=== PATIENT | male | born 1945 | race Caucasian/White ===

== ENCOUNTER 2018-06-16 08:12 | Inpatient (IN) | payer MEDICARE, OTHER ==
[~2018-06-16] VITALS: Ht 165.1 cm; Wt 77.0 kg
--- NOTE | 2018-06-16 08:12 | NUR ---
AAOX3, [id number] FROM [facility]: LEFT SIDED BODY WEAKNESS. LKW was 0730 while eating his breakfast. left facial drooping and slurred speech noted. RR is even and unlabored with NAD noted. Dr Heller at for eval. Placed on the monitor. Started IVHL LAC 18g, blood drawn sent to the lab.
--- NOTE | 2018-06-16 08:12 | NUR ---
CALLED CODE STROKE.
--- NOTE | 2018-06-16 08:14 | NUR ---
AT . IV ACCESS STARTED. BLOOD DRAWN FOR LABS.
--- NOTE | 2018-06-16 08:17 | NUR ---
PT TAKEN TO CT.
[2018-06-16] MEDS ORDERED: CT SWABBABLE VALVE TRANS SET 1 EA INFUS.SET MC ONE ×2 (08:18→10:13)
[2018-06-16] MEDS ORDERED: IV NS 0.9% 250 ML IV ONE ×2 (08:18→10:13)
[2018-06-16] MEDS ORDERED: IOHEXOL-350 100 ML VIAL IV ONE ×2 (08:18→10:12)
--- NOTE | 2018-06-16 08:20 | NUR ---
CALLED TELESTROKE HOTLINE TO PRESENT CASE SPOKE WITH JOSE MANUEL EXPECTING A CALL BACK FROM DR OLIVARES
[2018-06-16 08:23] LABS: BASOPHILS # (AUTO) 0.1 /CMM (0.0-0.2); BASOPHILS % (AUTO) 0.7 % (0.0-2.0); EOSINOPHILS % (AUTO) 1.3 % (0.0-6.0); HEMATOCRIT 44 % (39-51); HEMOGLOBIN 14.4 g/dL (13.5-17.5); LYMPHOCYTES % (AUTO) 24.6 % (20.0-44.0); MEAN CORPUSCULAR HEMOGLOBIN 30 PG (26.0-33.0); MEAN CORPUSCULAR HGB CONC 33 g/dl (31.0-36.0); MEAN CORPUSCULAR VOLUME 89 fL (80-96); MONOCYTES # (AUTO) 0.6 /CMM (0.1-1.30); MONOCYTES % (AUTO) 7.2 % (2.0-12.0); NEUTROPHILS # (AUTO) 5.2 /CMM (1.8-8.9); NEUTROPHILS % (AUTO) 66.2 % (43.0-81.0); PLATELET COUNT (AUTO) 339 /CMM (150-450); RDW COEFFICIENT OF VARIATION 14.1 (11.5-15.0); WHITE BLOOD COUNT (AUTO) 7.9 K/uL (4.3-11.0)
--- NOTE | 2018-06-16 08:25 | NUR ---
RECEIVED CALL BACK FROM TELE STROKE HOTLINE TRANSFERRED TO DR. NATION.
[2018-06-16] MEDS ORDERED: MORPHINE SULFATE INJ 2 MG/ML DISP.SYRIN IM ONE (08:30)
[2018-06-16] MEDS ORDERED: KETOROLAC TROMETHAMINE INJ 30 MG/ML VIAL IM ONE (08:30)
[2018-06-16 08:33] LABS: CALCIUM, SERUM 8.8 mg/dL (8.5-10.1); CARBON DIOXIDE 22 mmol/L (21-32); CHLORIDE 103 mmol/L (98-107); CREATININE 1.2 mg/dL (0.6-1.3); GLUCOSE 191 mg/dL (74-106); POTASSIUM 4.2 mmol/L (3.5-5.1); SODIUM SERUM 136 mmol/L (136-145); UREA NITROGEN, BLOOD 17 mg/dL (7-18)
[2018-06-16] MEDS ORDERED: MORPHINE SULFATE INJ 4 MG/ML DISP.SYRIN ONE (08:33)
[2018-06-16] MEDS ORDERED: KETOROLAC TROMETHAMINE INJ 60 MG/2 ML VIAL IM ONE (08:33)
[2018-06-16 08:39] LABS: INR 0.99 (0.87-1.13)
[2018-06-16 08:41] LABS: TROPONIN I < 0.017 ng/mL (0.00-0.056)
[2018-06-16 08:46] LABS: CHOLESTEROL 117 mg/dL (<200); HDL CHOLESTEROL 32 mg/dL (40-60); LDL 74 mg/dL (0-99); TRIGLYCERIDES 134 mg/dL (30-150)
[2018-06-16] MEDS ORDERED: ASPIRIN 81 MG TAB.CHEW ONE (08:58)
[2018-06-16] MEDS ORDERED: ASPIRIN 81 MG TAB.CHEW PO ONE (09:00)
--- NOTE | 2018-06-16 09:08 | NUR ---
CALLED [employer] CADET DECK WAS PAGED.
--- NOTE | 2018-06-16 09:40 | NUR ---
ASSIGNED TO #: [id number], DX: TIA, ACCEPTING: NIKKO JASON
--- NOTE | 2018-06-16 10:17 | NUR ---
Report given to KOBE bingham for SHELLIE Tele [id number]
[2018-06-16 11:22] LABS: THYROID STIMULATING HORMONE 4.093 uIU/mL (0.358-3.74)
[2018-06-16 12:00] VITALS: BP 145/81
[2018-06-16] MEDS ORDERED: CLOPIDOGREL BISULFATE 75 MG TABLET PO ONE ×2 (13:30→16:30)
[2018-06-16 16:00] VITALS: BP 142/83
--- NOTE | 2018-06-16 16:00 | NUR ---
RN NOTE: PATIENT ADMITTED FROM ER WITH DIAGNOSE OF TIA, RECEIVED ALERT AWAKE ORIENTED X 2-3 WITH PERIODS OF FORGETFULNESS, CONFUSION. NOTED LEFT SIDE WEAKNESS. MINOR ASYMMETRY OF FACE. ON 2LPM O2 VIA NC. SPEECH SLURRED, ABLE TO UNDERSTAND WITHOUT DIFFICULTY. SAFETY MEASURES OBSERVED. BEDSIDE SWALLOW EVALUATION DONE, PASS SCREEN. NO COUGH NOTED. ABLE TO SWALLOW EASILY. FALL PRECAUTION OBSERVED. CALL LIGHT WITHIN REACH. STROKE EDUCATION INITIATE. DISCUSS STROKE SIGN & SYMPTOMS. VERBALIZE YES I UNDERSTAND. BUT UNABLE TO RETURN DEMONSTRATION. WILL CONTINUE TO PROVIDE EDUCATION.
[2018-06-16 16:11] LABS: BILIRUBIN,DIRECT 0.1 mg/dL (0.0-0.2); BILIRUBIN,TOTAL 0.3 mg/dL (0.2-1.0); TOTAL PROTEIN, SERUM 8.3 g/dL (6.4-8.2)
--- NOTE | 2018-06-16 18:50 | NUR ---
RN NOTE: SEEN BY OT, PT AT BEDSIDE. DVT PUMP ON. ADMINISTER PLAVIX PO, AFTER BEDSIDE SCREENING DONE. ST EVAL PENDING, CONTINUE WITH NPO STATUS. INITIATE STROKE EDUCATION. FALL PREVENTION. REORIENTATION PROVIDED. INSTRUCT TO USE CALL LIGHT FOR IMMEDIATE ASSISTANCE. UNABLE TO COLLECT URINE DUE TO 1ST TIME SPILL ACCIDENTLY ON BED BY PATIENT. 2ND TIME USED RESTROOM WITH PT. WILL CONTINUE TO MONITOR.
[2018-06-16 20:00] VITALS: BP 149/77
[2018-06-16 20:35] LABS: APPEARANCE,URINE SL CLOUDY (CLEAR); BILIRUBIN,URINE NEGATIVE (NEGATIVE); BLOOD, URINE NEGATIVE Ery/uL (NEGATIVE); COLOR,URINE YELLOW (YELLOW); KETONES,URINE NEGATIVE (NEGATIVE); LEUKOCYTE ESTERASE ,URINE NEGATIVE (NEGATIVE); NITRITE, URINE NEGATIVE (NEGATIVE); PH,URINE 6.5 (5.0-8.0); PROTEIN,URINE NEGATIVE (NEGATIVE); UGLUCOSE NEGATIVE (NEGATIVE); UROBILINOGEN,URINE 0.2 EU/dL (0.2)
[2018-06-16] MEDS: ATORVASTATIN 10 MG TABLET PO SCH (23:00)
[2018-06-17] VITALS: BP 143/67
[2018-06-17 04:00] VITALS: BP 138/70
--- NOTE | 2018-06-17 07:10 | NUR ---
TELE/RN INITIAL NOTES RECEIVED PT IN BED, A/O X3; SR HR 70S ON TELEMONITOR. TOLERATING ROOM AIR WELL, NO SOB NOTED. DENIES ANY PAIN. DVT PUMP ON.. HOB ELEVATED. SAFETY MEASURES IN PLACED. CALL LIGHT WITHIN REACH. WILL CONT TO MONITOR
[2018-06-17 07:38] LABS: INR 1.03 (0.87-1.13)
[2018-06-17 08:00] VITALS: BP 115/94
[2018-06-17] MEDS ORDERED: OMEG1CAP PO (08:07)
[2018-06-17] MEDS ORDERED: DIVA250T4 PO (08:07)
[2018-06-17] MEDS ORDERED: POLY15DR40 EACHEYE (08:07)
[2018-06-17] MEDS ORDERED: MAG30ORA PO (08:07)
[2018-06-17] MEDS ORDERED: ACET-868 PO (08:07)
[2018-06-17] MEDS ORDERED: AMLO5TAB2 PO (08:07)
--- NOTE | 2018-06-17 08:30 | NUR ---
RN NOTES PO PLAVIX GIVEN, TOLERATED WELL. SPEECH THERAPIST AT BEDSIDE. PER OK TO START PUREED DIET FOR BREAKFAST
[2018-06-17] MEDS: CLOPIDOGREL BISULFATE 75 MG TABLET PO SCH (08:35)
[2018-06-17 08:48] LABS: BASOPHILS # (AUTO) 0.1 /CMM (0.0-0.2); BASOPHILS % (AUTO) 1.1 % (0.0-2.0); EOSINOPHILS % (AUTO) 1.8 % (0.0-6.0); HEMATOCRIT 43 % (39-51); HEMOGLOBIN 14.5 g/dL (13.5-17.5); LYMPHOCYTES # (AUTO) 2.3 /CMM (0.8-4.8); LYMPHOCYTES % (AUTO) 33.1 % (20.0-44.0); MEAN CORPUSCULAR HEMOGLOBIN 30 PG (26.0-33.0); MEAN CORPUSCULAR HGB CONC 34 g/dl (31.0-36.0); MEAN CORPUSCULAR VOLUME 90 fL (80-96); MONOCYTES # (AUTO) 0.6 /CMM (0.1-1.30); MONOCYTES % (AUTO) 8.3 % (2.0-12.0); NEUTROPHILS # (AUTO) 3.8 /CMM (1.8-8.9); NEUTROPHILS % (AUTO) 55.7 % (43.0-81.0); PLATELET COUNT (AUTO) 319 /CMM (150-450); RDW COEFFICIENT OF VARIATION 14.2 (11.5-15.0); RED BLOOD CELL COUNT(AUTO) 4.83 MIL/uL (4.5-6.0); WHITE BLOOD COUNT (AUTO) 6.9 K/uL (4.3-11.0)
--- NOTE | 2018-06-17 08:58 | NUR ---
RN NOTES SEEN AND EXAMINED BY DR HUA
[2018-06-17 09:05] LABS: CALCIUM, SERUM 8.6 mg/dL (8.5-10.1); CARBON DIOXIDE 24 mmol/L (21-32); CHLORIDE 106 mmol/L (98-107); CREATININE 1.1 mg/dL (0.6-1.3); GLUCOSE 125 mg/dL (74-106); POTASSIUM 4.6 mmol/L (3.5-5.1); SODIUM SERUM 140 mmol/L (136-145); UREA NITROGEN, BLOOD 14 mg/dL (7-18)
[2018-06-17 16:00] VITALS: BP 114/72
--- NOTE | 2018-06-17 18:56 | NUR ---
MS/RN CLOSING NOTES PT IN STABLE CONDITION. NO ACUTE DISTRESS NOTED THROUGHOUT SHIFT. SAFETY MEASURES OBSERVED AT ALL TIMES. ALL NEEDS ANTICIPATED. ENDORSED TO PM SHIFT NURSE FOR SHELLIE
[2018-06-17 20:00] VITALS: BP 128/69
--- NOTE | 2018-06-17 20:00 | NUR ---
RN INITIAL NOTES RECEIVED PT IN BED, A/O X3. TOLERATING ROOM AIR WELL, NO SOB NOTED. DENIES ANY PAIN. DVT PUMP ON.. HOB ELEVATED. SAFETY MEASURES IN PLACED. CALL LIGHT WITHIN REACH. WILL CONT TO MONITOR
[2018-06-17] MEDS: ATORVASTATIN 10 MG TABLET PO SCH (22:02)
[2018-06-18] VITALS: BP 128/69
[2018-06-18 04:00] VITALS: BP 139/79
--- NOTE | 2018-06-18 06:13 | NUR ---
RN CLOSING NOTES PT REMAINED STABLE OVER NIGHT. NO ACUTE DISTRESS NOTED THROUGHOUT SHIFT. SAFETY MEASURES OBSERVED AT ALL TIMES. ALL NEEDS ANTICIPATED AND MET. ENDORSED TO AM SHIFT NURSE FOR SHELLIE
[2018-06-18 08:00] VITALS: BP 130/76
--- NOTE | 2018-06-18 08:00 | NUR ---
DAWIT RN NOTES RECEIVED PT IN BED, A/O 2-3 WITH EPISODES OF CONFUSION, ON ROOM AIR SPO2 97%, NO SOB NOTED. DVT PUMP ON. SAFETY MEASURES IN PLACED. BEDSIDE COMMODE IN PLACE, CALL LIGHT WITHIN REACH.NO IV LINE NOTED AND PATIENT REFUSED TO BE STARTED NEW IV LINE. WILL CONT TO MONITOR PATIENT. Addendum: 06/18/18 at 1152 by AURELIO MARTÍNEZ RN PATIENT IS REFUSING NEW IV LINE START. NOTIFIED.
[2018-06-18] MEDS: CLOPIDOGREL BISULFATE 75 MG TABLET PO SCH (09:34)
[2018-06-18] MEDS ORDERED: ACETAMINOPHEN 325 MG TABLET PO PRN (14:00)
[2018-06-18 16:00] VITALS: BP 144/79
[2018-06-18] MEDS: POLYVINYL ALCOHOL 15 ML BOTTLE EACHEYE SCH (17:55)
[2018-06-18 20:00] VITALS: BP 123/58
--- NOTE | 2018-06-18 20:00 | NUR ---
RN INITIAL NOTES RECEIVED PT IN BED, A/O X3. TOLERATING ROOM AIR WELL, NO SOB NOTED. DENIES ANY PAIN. SAFETY MEASURES IN PLACED. CALL LIGHT WITHIN REACH. WILL CONT TO MONITOR
[2018-06-18] MEDS: ATORVASTATIN 10 MG TABLET PO SCH (21:40)
[2018-06-18] MEDS: DIVALPROEX SODIUM 250 MG TABLET.DR PO SCH (21:40)
[2018-06-18 22:00] VITALS: BP 123/58
[2018-06-19 04:00] VITALS: BP 123/58
[2018-06-19 08:00] VITALS: BP_SYST 126; BP_DIAS 72; BP_DIAS 75
[2018-06-19] MEDS ORDERED: Medication Not On Formulary EA (Omega-3 Fatty Acids/Fish Oil (Fish Oil 1,000 Mg Capsule) PO SCH (09:00)
[2018-06-19] MEDS: CLOPIDOGREL BISULFATE 75 MG TABLET PO SCH (09:22)
[2018-06-19] MEDS: POLYVINYL ALCOHOL 15 ML BOTTLE EACHEYE SCH ×2 (09:22→12:59)
[2018-06-19] MEDS: DIVALPROEX SODIUM 250 MG TABLET.DR PO SCH (09:22)
[2018-06-19] MEDS ORDERED: ATOR10TA PO (12:31)
[2018-06-19] MEDS ORDERED: ASPI-1169 PO (12:31)
[2018-06-19] MEDS ORDERED: CLOP75TA15 PO (12:31)
--- NOTE | 2018-06-19 15:44 | NUR ---
Pt discharged at 1530 today as ordered via ambulance to [facility]. Report given to KOBE Gloria. Pt incontinence care done. All belongings sent with pt.
== END 2018-06-19 15:52 | DRG 65 ==
LOC: ER 08:13 → TELE-TD 09:45 → TELE1 11:17 → MEDSG1 06-17 10:16
PROVIDERS: ADMIT Nurse Practitioner Acute Care; ATTEND Nurse Practitioner Acute Care
DX: I63.9 Cerebral infarction, unspecified (principal); F03.91 Unspecified dementia, unspecified severity, with behavioral disturbance; R73.9 Hyperglycemia, unspecified; I10 Essential (primary) hypertension; Z86.73 Personal history of transient ischemic attack (TIA), and cerebral infarction without residual deficits; Z79.82 Long term (current) use of aspirin; Z88.0 Allergy status to penicillin; I66.01 Occlusion and stenosis of right middle cerebral artery; K80.20 Calculus of gallbladder without cholecystitis without obstruction; K76.0 Fatty (change of) liver, not elsewhere classified; Z79.02 Long term (current) use of antithrombotics/antiplatelets
CPT/HCPCS: 36415; 70450-TC; 70496-TC; 70498-TC; 70551-TC; 71045-TC; 80048-TC; 80061-TC; 80076-TC; 80305; 81000-TC; 82962-TC; 83880; 84443-TC; 84484-TC; 85025-TC; 85652-TC; 85730-TC; 87081-TC; 92521; 92611-TC; 93307-TC; 93970-TC; 95819-TC; 97110-TC; 97112-TC; 97116-TC; A4606; J1885; J2270; J7050; Q9967

== ENCOUNTER 2021-01-16 20:20 | Emergency (ER) | payer MEDICARE, OTHER ==
[~2021-01-16] VITALS: Ht 165.1 cm; Wt 77.1 kg
[~2021-01-16 20:20] MED LIST: ACET-868 PO; AMLO-212 PO; ASPI-1169 PO; ATOR10TA PO; CLOP75TA15 PO; DIVA250T4 PO; MAG30ORA PO; OMEG1CAP PO; POLY15DR40 EACHEYE
--- NOTE | 2021-01-16 20:25 | NUR ---
PT BIBPA C/O A FALL AND TACHYCARDIA. PT AAOX4 BRATHING EVENLY AND UNLABORED. PT ATTACHED TO AIRFIELD ENGINEER OFFICER AND POX. UPON ASSESSMENT, PT HR 97 SKIN IS WARM AND DRY, BUT NOTED A SKIN TEAR ON HIS LEFT HAND. PT STATES IT IS FROM THE FALL. PT DENIES KO. GIVEN BLANKET AND CALL LIGHT WITHIN REACH
--- NOTE | 2021-01-16 22:07 | NUR ---
[facility] called for transport ETA [id number]
--- NOTE | 2021-01-16 22:50 | NUR ---
called [facility] and report given to Lynnette
--- NOTE | 2021-01-16 22:54 | NUR ---
GAVE REPORT TO EMS. Patient discharged to home in stable condition. Written and verbal after care instructions given. Patient verbalizes understanding of instruction. Pt ambulatory with a steady gait.
[2021-01-16 22:55] VITALS: BP 132/53
== END 2021-01-16 22:54 ==
LOC: ER 20:20
DX: S00.83XA Contusion of other part of head, initial encounter (principal); I10 Essential (primary) hypertension; E78.5 Hyperlipidemia, unspecified; E11.9 Type 2 diabetes mellitus without complications; F41.9 Anxiety disorder, unspecified; M19.90 Unspecified osteoarthritis, unspecified site; F03.90 Unspecified dementia, unspecified severity, without behavioral disturbance, psychotic disturbance, mood disturbance, and anxiety; Z86.73 Personal history of transient ischemic attack (TIA), and cerebral infarction without residual deficits; Z88.0 Allergy status to penicillin; Z79.82 Long term (current) use of aspirin; Z79.899 Other long term (current) drug therapy; W18.09XA Striking against other object with subsequent fall, initial encounter; Y93.89 Activity, other specified; Y92.89 Other specified places as the place of occurrence of the external cause; Y99.8 Other external cause status
CPT/HCPCS: 70450-TC; 72125-TC

== ENCOUNTER 2021-01-28 07:47 | Inpatient (IN) | payer MEDICARE, OTHER ==
[2021-01-28] VITALS (43 sets, daily range): BP systolic 89–163; BP diastolic 50–93
[~2021-01-28] VITALS: Ht 167.6 cm; Wt 73.9 kg
--- NOTE | 2021-01-28 07:55 | NUR ---
BLOOD SPECIMEN COLLECTED AND HANDED TO THE LAB.
--- NOTE | 2021-01-28 07:56 | NUR ---
THE PATIENT IS BIBRA [address] [facility] C/O NOSE BLEEDING STARTED 20 MINS WORK ENVIRONMENT SAFETY INSPECTOR. THE PATIENT IS ALERT AND ORIENTED X2. NO NOSEBLEED AT THIS TIME. THE PATIENT DENIES PAIN. IN ROOM AIR AND DENIES SOB. RESPIRATION REGULAR AND UNLABORED. PROVIDED WITH A WARM BLANKET FOR COMFORT. WILL CONTINUE TO MONITOR.
[2021-01-28 08:20] LABS: BASOPHILS % (AUTO) 0.2 % (0.0-2.0); HEMATOCRIT 28 % (39-51); HEMOGLOBIN 9.5 g/dL (13.5-17.5); LYMPHOCYTES % (AUTO) 4.4 % (20.0-44.0); MEAN CORPUSCULAR HGB CONC 34 g/dl (31.0-36.0); MEAN CORPUSCULAR VOLUME 87 fL (80-96); MONOCYTES # (AUTO) 2.3 /CMM (0.1-1.30); MONOCYTES % (AUTO) 10.5 % (2.0-12.0); NEUTROPHILS # (AUTO) 18.7 /CMM (1.8-8.9); NEUTROPHILS % (AUTO) 84.9 % (43.0-81.0); PLATELET COUNT (AUTO) 216 /CMM (150-450); RED BLOOD CELL COUNT(AUTO) 3.25 MIL/uL (4.5-6.0)
[2021-01-28 08:21] LABS: CALCIUM, SERUM 7.7 mg/dL (8.5-10.1); CARBON DIOXIDE 22 mmol/L (21-32); CHLORIDE 104 mmol/L (98-107); CREATININE 3.3 mg/dL (0.6-1.3); GLUCOSE 105 mg/dL (74-106); POTASSIUM 5.5 mmol/L (3.5-5.1); SODIUM SERUM 136 mmol/L (136-145); UREA NITROGEN, BLOOD 68 mg/dL (7-18)
[2021-01-28 08:34] LABS: ALANINE AMINOTRANSFERASE 18 U/L (12-78); ALBUMIN 1.9 g/dL (3.4-5.0); ALKALINE PHOSPHATASE 52 U/L (46-116); ASPARTATE AMINOTRANSFERASE 20 U/L (15-37); B-TYPE NATRIURETIC PEPTIDE 28453 PG/ML (0-125); BILIRUBIN,DIRECT 0.2 mg/dL (0.0-0.2); BILIRUBIN,TOTAL 0.5 mg/dL (0.2-1.0); TOTAL PROTEIN, SERUM 5.8 g/dL (6.4-8.2)
--- NOTE | 2021-01-28 08:40 | NUR ---
Covid swabs done and took them to the lab.
--- NOTE | 2021-01-28 08:45 | NUR ---
MOVE SHEET SUBMITTED AND CALLED FOR BED.
--- NOTE | 2021-01-28 08:57 | NUR ---
[facility] CALLED WIRE WRAPPING MACHINE OPERATOR PAGED.
[2021-01-28] MEDS ORDERED: AZITHROMYCIN 500 MG in IV D5W 250 ML IV ONE (09:00)
[2021-01-28] MEDS ORDERED: CEFTRIAXONE 1GM BAG (ER ONLY) 1 GM/50 ML PIGGYBACK IV ONE (09:00)
[2021-01-28] MEDS ORDERED: FUROSEMIDE 40 MG/4 ML VIAL IV ONE (09:00)
[2021-01-28] MEDS ORDERED: QUERCETIN PO (09:02)
[2021-01-28] MEDS ORDERED: MAGN400O6 PO (09:02)
[2021-01-28] MEDS ORDERED: NA P133E RC (09:02)
[2021-01-28] MEDS ORDERED: CYCL30DR EACHEYE (09:02)
[2021-01-28] MEDS ORDERED: DOCU-141 PO (09:02)
[2021-01-28] MEDS ORDERED: CLOP75TA15 PO (09:02)
[2021-01-28] MEDS ORDERED: CEFTRIAXONE 1GM BAG (ER ONLY) 50 ML IV ONE (09:11)
[2021-01-28] MEDS ORDERED: FUROSEMIDE 40 MG/4 ML VIAL ONE (09:11)
--- NOTE | 2021-01-28 09:37 | NUR ---
RESULT RECEIVED FROM LAB: RAPID COVID NEGATIVE
--- NOTE | 2021-01-28 09:59 | NUR ---
RAPID INFLUENZA SWAB DONE AND TAKEN IT TO THE LAB.
[2021-01-28] MEDS ORDERED: MORPHINE SULFATE INJ 2 MG/ML DISP.SYRIN IV PRN (11:00)
[2021-01-28] MEDS ORDERED: TEMAZEPAM 15 MG CAPSULE PO PRN (11:00)
[2021-01-28] MEDS ORDERED: ONDANSETRON HCL/PF 4 MG/2 ML VIAL IVP PRN (11:00)
[2021-01-28] MEDS ORDERED: ACETAMINOPHEN 325 MG TABLET PO PRN (11:00)
[2021-01-28] MEDS ORDERED: MAG HYDROX/AL HYDROX/SIMETH 30 ML UDC PO PRN (11:00)
[2021-01-28] MEDS ORDERED: Z GUARD REMEDY 2 OZ OINT TP PRN (11:00)
[2021-01-28] MEDS ORDERED: HYDROCODONE/APAP 5/325MG TABLET PO PRN (11:00)
[2021-01-28] MEDS ORDERED: MAGNESIUM HYDROXIDE 30 ML UDC PO PRN (11:00)
[2021-01-28] MEDS ORDERED: PANTOPRAZOLE 80 MG in IV NS 0.9% 100 ML IV ONE ×2 (11:30→12:00)
--- NOTE | 2021-01-28 11:32 | NUR ---
PROTONIX IB 80 MG DUE AT 1130 IS NOT ADMINISTERED DUE TO ALREADY GETTING TRANSFERRED AND DR DAVILA AWARE.
--- NOTE | 2021-01-28 11:35 | NUR ---
ADMIT NOTE PATIENT BROUGHT IN VIA GURNEY FROM ER. A/OX2 TO FIRST NAME AND PLACE. PATIENT IS SWAZI SPEAKING, ABLE TO MAKE NEEDS KNOWN. ON 2L O2 THERAPY VIA NASAL CANNULA; OXYGEN SATURATION 96%, TOLERATING WELL. TELE MONITOR PLACED ONTO PATIENT, SHOWING SINUS RHYTHM AT THIS TIME. NOTED MULTIPLE SCABS ON BILATERAL LEGS, PHOTO TAKEN AND IN CHART. SCAB ALSO NOTED ON LEFT HAND. PHOTO TAKEN AND IN CHART. WOUND CARE CONSULT ORDERED. PATIENT IS REPORTED TO HAVING MUTIPLE EPISODES OF BLOOD IN STOOL. MD AWARE. ALL SAFETY MEASURES IN PLACE PER HOSPITAL POLICY, BED LOCKED IN LOWEST POSITION. CALL LIGHT WITHIN REACH. WILL CONTINUE TO MONITOR PATIENT AND PROVIDE TREATMENT.
--- NOTE | 2021-01-28 11:38 | NUR ---
TRANSFERED THE PATIENT TO ROOM 113-1 PER [facility]. THE PATIENT LEFT ER IN STABLE CONDITION.
[2021-01-28 11:58] LABS: IRON, SERUM 11 ug/dl (50-175); TOTAL IRON BINDING CAPACITY 128 ug/dl (250-450)
[2021-01-28] MEDS ORDERED: PANTOPRAZOLE 80 MG in IV NS 0.9% 500 ML IV PRN (12:00)
[2021-01-28 12:13] LABS: FERRITIN 538 ng/mL (8-388)
[2021-01-28] MEDS: PANTOPRAZOLE 40 MG VIAL IV SCH ×2 (12:15→21:50)
--- NOTE | 2021-01-28 12:49 | NUR ---
SPOKE TO [facility] REGARDING PATIENT. SPOKE WITH NURSING FISH BAIT PROCESSING SUPERVISOR OFELIA. OFELIA STATED THAT PATIENT DOES NOT HAVE ANY FAMILY MEMBERS OR NEXT OF KIN. INFORMED MD REGARDING CONSENT FORMS NEEDED.
[2021-01-28 13:23] LABS: BASOPHILS % (AUTO) 0.1 % (0.0-2.0); HEMATOCRIT 21 % (39-51); LYMPHOCYTES # (AUTO) 0.8 /CMM (0.8-4.8); LYMPHOCYTES % (AUTO) 4.9 % (20.0-44.0); MEAN CORPUSCULAR HGB CONC 32 g/dl (31.0-36.0); MEAN CORPUSCULAR VOLUME 88 fL (80-96); MONOCYTES # (AUTO) 1.5 /CMM (0.1-1.30); MONOCYTES % (AUTO) 9.1 % (2.0-12.0); NEUTROPHILS # (AUTO) 13.8 /CMM (1.8-8.9); NEUTROPHILS % (AUTO) 85.9 % (43.0-81.0); PLATELET COUNT (AUTO) 176 /CMM (150-450); RED BLOOD CELL COUNT(AUTO) 2.33 MIL/uL (4.5-6.0)
[2021-01-28 13:37] LABS: HEMOGLOBIN 6.6 g/dL (13.5-17.5)
[2021-01-28] MEDS: POLYVINYL ALCOHOL 15 ML BOTTLE EACHEYE SCH ×2 (14:00→17:00)
--- NOTE | 2021-01-28 14:02 | NUR ---
STOKES CATHETER INSERTED ORDERED BY MD. PATIENT TAKEN TO SURGERY AFTER INSERTION. ALL CONSENTS SIGNED.
[2021-01-28] MEDS ORDERED: MIDAZOLAM HCL 2 MG/2ML VIAL ONE (14:03)
[2021-01-28] MEDS ORDERED: ALBUMIN 25% 50 ML IV ONE (14:20)
--- NOTE | 2021-01-28 14:55 | NUR ---
CALLED ICU AND GAVE REPORT TO DIMAS BULLOCK FOR CONTINUATION OF CARE.
--- NOTE | 2021-01-28 15:10 | NUR ---
RN INITIAL NOTES Received pt from OR, SP EGD. Intubated, On vent. No respiratory distress noted. No signs of pain noted. IV line in place. Flushed with NS. Barajas in place. No hematuria noted. BLE elevated. Covid PCR pending. Dr Vincent notified. Ordered STAT labs and CXR. Will closely monitor
--- NOTE | 2021-01-28 15:30 | NUR ---
RN NOTES SEEN BY NOHEMY JIMENEZ NP. AWARE OF PT'S CURRENT CONDITION. NASAL AND ORAL BLEEDING NOTED. MODERATE BLOODY STOOL NOTED. LATEST HBG 6.6, HCT 21. STAT CBC PENDING. HAS 1 UNIT PRBC ORDER, PENDING AVAILABILITY FOR TRANSFUSION. EMMA SLATER AND DR CARPENTER DISCUSSED PLAN OF CARE. PT FOR ENT CONSULT. WILL DO NASAL PACKING, ER MD AWARE. POSSIBLE TRANSFER TO HIGHER LEVEL OF CARE. WILL CLOSELY MONITOR
[2021-01-28 16:02] LABS: CALCIUM, SERUM 7.1 mg/dL (8.5-10.1); CARBON DIOXIDE 21 mmol/L (21-32); CHLORIDE 107 mmol/L (98-107); CREATININE 3.7 mg/dL (0.6-1.3); GLUCOSE 113 mg/dL (74-106); SODIUM SERUM 137 mmol/L (136-145); UREA NITROGEN, BLOOD 76 mg/dL (7-18)
[2021-01-28 16:06] LABS: BASOPHILS # (AUTO) 0.1 /CMM (0.0-0.2); BASOPHILS % (AUTO) 0.4 % (0.0-2.0); LYMPHOCYTES # (AUTO) 0.9 /CMM (0.8-4.8); LYMPHOCYTES % (AUTO) 5.5 % (20.0-44.0); MEAN CORPUSCULAR HGB CONC 32 g/dl (31.0-36.0); MEAN CORPUSCULAR VOLUME 90 fL (80-96); MONOCYTES # (AUTO) 1.1 /CMM (0.1-1.30); MONOCYTES % (AUTO) 6.7 % (2.0-12.0); NEUTROPHILS # (AUTO) 14.5 /CMM (1.8-8.9); NEUTROPHILS % (AUTO) 87.4 % (43.0-81.0); PLATELET COUNT (AUTO) 178 /CMM (150-450); RED BLOOD CELL COUNT(AUTO) 2.08 MIL/uL (4.5-6.0); WHITE BLOOD COUNT (AUTO) 16.6 K/uL (4.3-11.0)
[2021-01-28 16:13] LABS: HEMATOCRIT 19 % (39-51)
[2021-01-28] MEDS: PROPOFOL 100 ML IV PRN ×2 (16:21→22:45)
[2021-01-28 16:54] LABS: BAND % (MANUAL) 2 % (0.0-5.0); LYMPHOCYTES % (MANUAL) 5 % (16-48); MONOCYTES % (MANUAL) 8 % (0-11.0); NEUTROPHILS % (MANUAL) 85 (42-76)
[2021-01-28 18:14] LABS: ABG BASE EXCESS -7.6 mmol/L; ABG OXYGEN SATURATION 98.3 % (92.0-98.5); ABG PCO2 31.2 mmHg (35.0-45.0); ABG PH 7.357 (7.350-7.450); ABG PO2 134.1 mmHg (75.0-100.0); AaDO2 187.3 mmHg; COHb 0.4 % (0.5-1.5); MetHb 0.5 % (0.0-1.5); O2Hb 97.4 % (94.0-97.0); SITE, ABG Right Radial
--- NOTE | 2021-01-28 18:39 | NUR ---
RN CLOSING NOTES PT INTUBATED, ON VENT. NO RESPIRATORY DISTRESS NOTED. NO SIGNS OF PAIN NOTED. PT SEDATED. 1 UNIT OF PRBC TRANSFUSED. NO TRANSFUSION REACTION NOTED. BILATERAL NASAL PACKING IN PLACE. NO FURTHER BLEEDING NOTED. STOKES IN PLACE. HOB ELEVATED. KEPT COMFORTABLE. WILL ENDORSE FOR CONTINUITY OF CARE.
--- NOTE | 2021-01-28 19:35 | NUR ---
RN OPENING NOTES, PT INTUBATED, MECHANICAL VENTILATOR TOLERATED WELL, NO SOB/NO RESPIRATORY DISTRESS NOTED, NO SIGNS OF PAIN NOTED, NSR HR IN 90S AT TIS TIME, LAC AND RAC IV LINES PATENT AND INTACT, DIPRIVAN INFUSING AT 20MCG PATIENT TOLERATING WELL, NO S/S OF INFILTRATION NOTED, S/P ONE UNIT OF PRBC, AND STARTING THE SECOND ONE AT THIS TIME, AFEBRILE AT THIS TIME, BILATERAL NASAL PACKING IN PLACE, NO ACTIVE BLEEDING NOTED, STOKES IN PLACE, WITH 40CC OF YELLOW URINE IN THE BAG, HOB ELEVATED, WILL CONTINUE TO MONITOR CLOSELY.
--- NOTE | 2021-01-28 20:33 | NUR ---
RN NOTES, PATIENT NOTED WITH HEMATURIA, NERA HERE ASSESSING PATIENT, WILL CONTINUE TO MONITOR CLOSELY.
[2021-01-28] MEDS: DIVALPROEX SODIUM 250 MG TABLET.DR PO SCH (21:00)
--- NOTE | 2021-01-28 21:10 | NUR ---
RN NOTES, ESTRELLA MIDLINE 18G INSERTED AT THIS TIME, PATIENT TOLERATED PROCEDURE WELL.
--- NOTE | 2021-01-28 21:45 | NUR ---
RN NOTES, INFORMED JOHN PIZARRO DNP THAT PATIENT POTASSIUM LEVEL WAS 6.0 DURING THE DAY AND WAS NOT ADDRESSED, ALSO INFORMED THAT PATIENT S NOTED WITH HEMATURIA, AND PATIENT WAS ASSESSED BY NERA, WITH NEW ORDER FOR JOHN MORA PUTTING ORDERS FOR MANAGE POTASSIUM LEVEL AT THIS TIME, WILL ADMINISTERED ORDERED.
[2021-01-28] MEDS ORDERED: DEXTROSE 50%-WATER 50 ML DISP.SYRIN IVP ONE (22:00)
[2021-01-28] MEDS ORDERED: MEROPENEM 500 MG in IV NS 0.9% 50 ML IV SCH (22:00)
[2021-01-28] MEDS ORDERED: INSULIN REGULAR, HUMAN 100 UNIT/ML 3 ML VIAL IV ONE (22:00)
[2021-01-28] MEDS ORDERED: MEROPENEM 500 MG VIAL IV ONE (22:12)
[2021-01-29] VITALS (43 sets, daily range): BP systolic 110–181; BP diastolic 29–91
--- NOTE | 2021-01-29 | NUR ---
RN NOTES, REVIEWED CHART AND NOTICED NO FAMILY LISTED IN THE FACE SHEET, CALLED [facility] AND PER LUPE RN, PATIENT DOESN'T HAVE FAMILY, AND IS IDT, ANYTHING REGARDING PATIENT CALL THE FACILITY.
[2021-01-29 00:12] LABS: BASOPHILS % (AUTO) 0.3 % (0.0-2.0); EOSINOPHILS % (AUTO) 0.1 % (0.0-6.0); HEMATOCRIT 22 % (39-51); HEMOGLOBIN 7.3 g/dL (13.5-17.5); LYMPHOCYTES # (AUTO) 1.5 /CMM (0.8-4.8); LYMPHOCYTES % (AUTO) 9.7 % (20.0-44.0); MEAN CORPUSCULAR HGB CONC 34 g/dl (31.0-36.0); MEAN CORPUSCULAR VOLUME 86 fL (80-96); MONOCYTES # (AUTO) 1.5 /CMM (0.1-1.30); MONOCYTES % (AUTO) 9.8 % (2.0-12.0); NEUTROPHILS # (AUTO) 12.5 /CMM (1.8-8.9); NEUTROPHILS % (AUTO) 80.1 % (43.0-81.0); PLATELET COUNT (AUTO) 170 /CMM (150-450); RED BLOOD CELL COUNT(AUTO) 2.52 MIL/uL (4.5-6.0); WHITE BLOOD COUNT (AUTO) 15.6 K/uL (4.3-11.0)
--- NOTE | 2021-01-29 03:00 | NUR ---
RN NOTES, URINE COLLECTED, LAB AWARE.
[2021-01-29] MEDS: IV NS 0.9% 1,000 ML IV PRN ×3 (03:01→20:10)
[2021-01-29 05:09] LABS: BASOPHILS # (AUTO) 0.1 /CMM (0.0-0.2); BASOPHILS % (AUTO) 0.4 % (0.0-2.0); EOSINOPHILS % (AUTO) 0.4 % (0.0-6.0); HEMATOCRIT 22 % (39-51); HEMOGLOBIN 7.4 g/dL (13.5-17.5); LYMPHOCYTES % (AUTO) 7.3 % (20.0-44.0); MEAN CORPUSCULAR HGB CONC 34 g/dl (31.0-36.0); MEAN CORPUSCULAR VOLUME 88 fL (80-96); MONOCYTES # (AUTO) 1.1 /CMM (0.1-1.30); MONOCYTES % (AUTO) 8.1 % (2.0-12.0); NEUTROPHILS # (AUTO) 11.3 /CMM (1.8-8.9); NEUTROPHILS % (AUTO) 83.8 % (43.0-81.0); PLATELET COUNT (AUTO) 198 /CMM (150-450); RED BLOOD CELL COUNT(AUTO) 2.49 MIL/uL (4.5-6.0); WHITE BLOOD COUNT (AUTO) 13.5 K/uL (4.3-11.0)
[2021-01-29 05:23] LABS: ALANINE AMINOTRANSFERASE 13 U/L (12-78); ALBUMIN 1.8 g/dL (3.4-5.0); ALKALINE PHOSPHATASE 38 U/L (46-116); ASPARTATE AMINOTRANSFERASE 25 U/L (15-37); BILIRUBIN,TOTAL 0.3 mg/dL (0.2-1.0); CALCIUM, SERUM 6.6 mg/dL (8.5-10.1); CARBON DIOXIDE 21 mmol/L (21-32); CHLORIDE 108 mmol/L (98-107); CREATININE 4.1 mg/dL (0.6-1.3); GLUCOSE 79 mg/dL (74-106); MAGNESIUM 2.5 mg/dL (1.8-2.4); PHOSPHORUS 6.8 mg/dL (2.5-4.9); POTASSIUM 5.4 mmol/L (3.5-5.1); SODIUM SERUM 140 mmol/L (136-145); TOTAL PROTEIN, SERUM 4.9 g/dL (6.4-8.2)
[2021-01-29 05:27] LABS: UREA NITROGEN, BLOOD 82 mg/dL (7-18)
[2021-01-29 05:28] LABS: IRON, SERUM 30 ug/dl (50-175); TOTAL IRON BINDING CAPACITY 95 ug/dl (250-450)
[2021-01-29 05:35] LABS: CHOLESTEROL 77 mg/dL (<200); CREATINE KINASE, TOTAL 32 U/L (39-308); HDL CHOLESTEROL 12 mg/dL (40-60); LDL 32 mg/dL (0-99); THYROID STIMULATING HORMONE 3.585 uIU/mL (0.358-3.74); TRIGLYCERIDES 157 mg/dL (30-150)
--- NOTE | 2021-01-29 06:16 | NUR ---
RT NOTE Pt rec'd orally intubated via ETT sz #7.5 secured @ 22CM at the lipline. Pt on [facility] vent on AC mode settings as charted. ETT patent and secured. Pt sx'd for thick mod amt of bloody secretions. Alarms are set and audible. ambu bag bedside. Vent plugged into red outlet. will continue to monitor closely Addendum: 01/29/21 at 0616 by LOYDA VALLECILLO RT Amended: Links added.
--- NOTE | 2021-01-29 06:44 | NUR ---
RN CLOSING NOTES, PT INTUBATED, CONT MECHANICAL VENTILATOR TOLERATED WELL, NO SOB/NO RESPIRATORY DISTRESS NOTED, NO SIGNS OF PAIN NOTED, NSR HR IN 90S MOSTLY DURING THE NIGHT, ON DIPRIVAN INFUSING AT 40MCG AT THIS TIME, PATIENT GOT AGITATED TRYING TO REMOVE TUBINGS, NEED FOR INCREASED SEDATION, EDUCATE PATIENT AND SEEM TO UNDERSTAND, NODS HEAD, ONE UNIT PRBC OF BLOOD AND PLATELET ADMINISTERED, LAST NIGHT, BILATERAL NASAL PACKING IN PLACE, NO ACTIVE BLEEDING NOTED FROM NOSE/MOUTH, BUT BLOODY SECRETIONS WHEN SUCTIONING, STOKES IN PLACE, WITH HEMATURIA DURING THE NIGHT, HOB ELEVATED, SUCTIONING NEEDED, S/R X2 UP, RESTRAINS IN PLACED, NO ABNORMALITY NOTED AT SITE, WILL ENDORSE CONTINUITY OF CARE TO ONCOMING NURSE.
[2021-01-29] MEDS: PROPOFOL 100 ML IV PRN ×4 (06:45→20:32)
--- NOTE | 2021-01-29 07:15 | NUR ---
RN INITIAL NOTES RECEIVED PT INTUBATED, ON VENT. SEDATED, ON DIPRIVAN. BILATERAL NASAL PACKING NOTED. ESTRELLA MIDLINE IN PLACE. IVF INFUSING. STOKES IN PLACE. HEMATURIA NOTED. LATEST HGB 7.4, HCT 22. WILL CLOSELY MONITOR
[2021-01-29] MEDS ORDERED: PANTOPRAZOLE 40 MG TABLET.DR PO SCH (07:30)
--- NOTE | 2021-01-29 08:46 | NUR ---
WOUND CARE CONSULT: REVIEWED CHART, NURSING DOCUMENTATION AND PHOTOS WHICH INDICATE MULTIPLE AREAS OF DISCOLORATION/LESIONS TO FEET, PRESENT ON ADMISSION. RECOMMEND DPM CONSULT. DR ISRAEL NOTIFIED OF CONSULT REQUEST. RECOMMEND FIRST STEP LOW AIRLOSS MATTRESS. ALL SKIN PROTECTION RECOMMENDATIONS IN PLACE AND DISCUSSED WITH NURSING STAFF. MD IN AGREEMENT WITH PLAN OF CARE.
[2021-01-29] MEDS: PANTOPRAZOLE 40 MG VIAL IV SCH ×2 (08:56→20:13)
[2021-01-29] MEDS: DIVALPROEX SODIUM 250 MG TABLET.DR PO SCH (08:57)
[2021-01-29] MEDS: POLYVINYL ALCOHOL 15 ML BOTTLE EACHEYE SCH ×3 (08:58→16:34)
[2021-01-29] MEDS ORDERED: Medication Not On Formulary EA (Omega-3 Fatty Acids/Fish Oil (Fish Oil 1,000 Mg Capsule) PO SCH (09:00)
[2021-01-29] MEDS ORDERED: AMLODIPINE BESYLATE 5 MG TABLET PO SCH (09:00)
[2021-01-29] MEDS ORDERED: Medication Not On Formulary EA ([Quercetin] 500 MG) PO SCH (09:00)
[2021-01-29] MEDS ORDERED: DOCUSATE SODIUM 100 MG CAPSULE PO SCH (09:00)
[2021-01-29] MEDS ORDERED: MEROPENEM 500 MG in IV NS 0.9% 50 ML IV SCH (09:00)
[2021-01-29 09:18] LABS: BASOPHILS # (AUTO) 0.1 /CMM (0.0-0.2); BASOPHILS % (AUTO) 0.8 % (0.0-2.0); EOSINOPHILS % (AUTO) 0.6 % (0.0-6.0); HEMATOCRIT 21 % (39-51); LYMPHOCYTES # (AUTO) 0.9 /CMM (0.8-4.8); LYMPHOCYTES % (AUTO) 8.1 % (20.0-44.0); MEAN CORPUSCULAR HGB CONC 34 g/dl (31.0-36.0); MEAN CORPUSCULAR VOLUME 88 fL (80-96); MONOCYTES % (AUTO) 8.4 % (2.0-12.0); NEUTROPHILS # (AUTO) 9.5 /CMM (1.8-8.9); NEUTROPHILS % (AUTO) 82.1 % (43.0-81.0); PLATELET COUNT (AUTO) 206 /CMM (150-450); RED BLOOD CELL COUNT(AUTO) 2.35 MIL/uL (4.5-6.0); WHITE BLOOD COUNT (AUTO) 11.6 K/uL (4.3-11.0)
[2021-01-29 09:23] LABS: HEMOGLOBIN 6.9 g/dL (13.5-17.5)
[2021-01-29] MEDS ORDERED: BUMETANIDE INJ 4 MG in IV D5W 24 ML IV ONE (09:30)
[2021-01-29] MEDS ORDERED: PHYTONADIONE INJ 10 MG/1 ML AMPUL SQ ONE (09:30)
[2021-01-29] MEDS: MEROPENEM 500 MG in IV NS 0.9% 100 ML IV SCH ×2 (10:18→20:33)
[2021-01-29 10:40] LABS: BASOPHILS % (MANUAL) 1 % (0.0-2.0); EOSINOPHILS % (MANUAL) 1 % (0-4); LYMPHOCYTES % (MANUAL) 9 % (16-48); MONOCYTES % (MANUAL) 8 % (0-11.0); NEUTROPHILS % (MANUAL) 81 (42-76)
[2021-01-29] MEDS ORDERED: PROPOFOL 0 ML ONE (12:04)
[2021-01-29] MEDS ORDERED: IODIXANOL 320MG/ML 0 ML IV ONE (12:04)
[2021-01-29] MEDS ORDERED: IV NS 0.9% 250 ML IV ONE (12:08)
[2021-01-29 16:17] LABS: CALCIUM, SERUM 7.1 mg/dL (8.5-10.1); CARBON DIOXIDE 21 mmol/L (21-32); CHLORIDE 108 mmol/L (98-107); GLUCOSE 84 mg/dL (74-106); POTASSIUM 5.3 mmol/L (3.5-5.1); SODIUM SERUM 139 mmol/L (136-145)
[2021-01-29 16:19] LABS: UREA NITROGEN, BLOOD 82 mg/dL (7-18)
--- NOTE | 2021-01-29 19:00 | NUR ---
RN CLOSING NOTES PT REMAINS INTUBATED, ON VENT. NO RESPIRATORY DISTRESS NOTED. HOB ELEVATED. PT SEDATED. GIVEN 1 UNIT OF PRBC. NO BLOOD TRANSFUSION REACTION NOTED. STOKES IN PLACE, STILL WITH HEMATURIA. HEMODIALYSIS ONGOING. FOR TRANSFER TO [facility], REPORT GIVEN TO KOBE GRAY. PT GOING TO ROOM 305-1. AWAITING FOR P/U. ENDORSED TO KOBE KANG
--- NOTE | 2021-01-29 19:00 | NUR ---
RECEIVED PATIENT ORALLY INTUBATED ON AC MODE,ON CONTACT/DROPLET ISOLATION DUE TO PENDING COVID PCR TEST RESULT(RAPID TEST (-). RESPONDS TO PAIN ,ON MODERATE SEDATION WITH PROPOFOL DRIP .,+ COUGH,+ GAG, GRIMACES TO PAIN, WITHDRAWS EXTREMITIES TO PAIN.WITH NASAL PACKING TO BOTH NOSTRILS,NO ACTIVE BLEEDING OR ANY BLOOD OZZING NOTED. STOKES CATHETER NOTED WITH HEMATURIC OUTPUT. HEMODIALYSIS IN PROGRESS,FIRST TREATMENT ( VIA RIGHT FEMORAL TRIALYSIS),TOLERATING TREATMENT,REMAINS STABLE. FOR TRANSFER TO [facility] ,REPORT HAS BEEN GIVEN BY JOSUE BULLOCK([place]) TO MARINA BULLOCK IN [facility].
[2021-01-29 19:02] LABS: D-DIMER 5.32 mg/L(FEU (0.17-0.50)
--- NOTE | 2021-01-29 20:00 | NUR ---
HEMODIALYSIS OVER (1 I/2 HORS), WITH 600 ML.OUT PER HD NURSE.
--- NOTE | 2021-01-29 20:40 | NUR ---
TRANSPORT ANBULANCE HERE TO LEAD GENERATION SPECIALIST PATIENT.
--- NOTE | 2021-01-29 21:00 | NUR ---
PATIENT LEFT FOR [facility],REPORT GIVEN TO TRANSPORT PERSONNEL.
[2021-01-30 08:07] LABS: PTH, INTACT 179 pg/mL (15-65)
[2021-01-30 13:07] LABS: *SPE A/G RATIO 0.8 (0.7-1.7); *SPE ALBUMIN 1.8 g/dL (2.9-4.4); *SPE ALPHA-1-GLOBULIN 0.4 g/dL (0.0-0.4); *SPE ALPHA-2-GLOBULIN 0.6 g/dL (0.4-1.0); *SPE BETA GLOBULIN 0.7 g/dL (0.7-1.3); *SPE GLOBULIN, TOTAL 2.4 g/dL (2.2-3.9); *SPE M-SPIKE Not Observed g/dL (Not Observed); *SPEGAMMA GLOBULIN 0.7 g/dL (0.4-1.8)
== END 2021-01-29 21:00 | disposition short-term general hospital (02) | DRG 150 ==
LOC: ER 07:52 → TELE1 10:09 → ICU 14:57
PROVIDERS: ADMIT Nurse Practitioner Acute Care
PROC: 2Y41X5Z Packing of Nasal Region using Packing Material (ICD-10-PCS; principal; 2021-01-28)
PROC: 30233N1 Transfusion of Nonautologous Red Blood Cells into Peripheral Vein, Percutaneous Approach (ICD-10-PCS; 2021-01-28)
PROC: 0DJ08ZZ Inspection of Upper Intestinal Tract, Via Natural or Artificial Opening Endoscopic (ICD-10-PCS; 2021-01-28)
PROC: 30233R1 Transfusion of Nonautologous Platelets into Peripheral Vein, Percutaneous Approach (ICD-10-PCS; 2021-01-28)
PROC: 05H533Z Insertion of Infusion Device into Right Subclavian Vein, Percutaneous Approach (ICD-10-PCS; 2021-01-28)
PROC: B546ZZA Ultrasonography of Right Subclavian Vein, Guidance (ICD-10-PCS; 2021-01-28)
PROC: 0BH18EZ Insertion of Endotracheal Airway into Trachea, Via Natural or Artificial Opening Endoscopic (ICD-10-PCS; 2021-01-28)
PROC: 5A1945Z Respiratory Ventilation, 24-96 Consecutive Hours (ICD-10-PCS; 2021-01-28)
PROC: 06HY33Z Insertion of Infusion Device into Lower Vein, Percutaneous Approach (ICD-10-PCS; 2021-01-29)
PROC: 5A1D70Z Performance of Urinary Filtration, Intermittent, Less than 6 Hours Per Day (ICD-10-PCS; 2021-01-29)
DX: R04.0 Epistaxis (principal); J96.01 Acute respiratory failure with hypoxia; G93.41 Metabolic encephalopathy; N17.0 Acute kidney failure with tubular necrosis; E43 Unspecified severe protein-calorie malnutrition; I50.33 Acute on chronic diastolic (congestive) heart failure; I13.0 Hypertensive heart and chronic kidney disease with heart failure and stage 1 through stage 4 chronic kidney disease, or unspecified chronic kidney disease; I69.354 Hemiplegia and hemiparesis following cerebral infarction affecting left non-dominant side; D68.69 Other thrombophilia; D62 Acute posthemorrhagic anemia; K92.1 Melena; M19.90 Unspecified osteoarthritis, unspecified site; N18.9 Chronic kidney disease, unspecified; Z88.0 Allergy status to penicillin; F03.90 Unspecified dementia, unspecified severity, without behavioral disturbance, psychotic disturbance, mood disturbance, and anxiety; E87.5 Hyperkalemia; E78.5 Hyperlipidemia, unspecified; F41.9 Anxiety disorder, unspecified; Z20.822 Contact with and (suspected) exposure to COVID-19; K25.9 Gastric ulcer, unspecified as acute or chronic, without hemorrhage or perforation; F09 Unspecified mental disorder due to known physiological condition; R23.4 Changes in skin texture; R60.9 Edema, unspecified; Z74.09 Other reduced mobility; Z79.82 Long term (current) use of aspirin; R31.9 Hematuria, unspecified; E11.36 Type 2 diabetes mellitus with diabetic cataract; E11.22 Type 2 diabetes mellitus with diabetic chronic kidney disease; Z79.02 Long term (current) use of antithrombotics/antiplatelets
CPT/HCPCS: 31720; 36415; 36600; 71045-TC; 75630-TC; 76770-TC; 80048-TC; 80053-TC; 80061-TC; 80076-TC; 82550-TC; 82728-TC; 82962-TC; 83540-TC; 83605-TC; 83735-TC; 83880; 83970; 84100-TC; 84155; 84165; 84443-TC; 84484-TC; 85025-TC; 85396; 85610-TC; 85730-TC; 86850-TC; 87040-TC; 93307-TC; 94003-TC; 94762-TC; 94799-TC; C1750; C9113; C9803; G0378; J0456; J0696; J1815; J1940; J2185; J2250; J3430; J3490; J7030; J7040; J7050; J7060; P9016-BL; P9034-BL; P9045; P9047; U0003

== ENCOUNTER 2021-03-24 23:54 | Inpatient (IN) | payer MEDICARE, OTHER ==
[~2021-03-24] VITALS: Ht 167.6 cm; Wt 56.7 kg
[~2021-03-24 23:54] MED LIST changes: -ASPI-1169 PO; -ATOR10TA PO; +CYCL30DR EACHEYE; +DOCU-141 PO; +MAGN400O6 PO; +NA P133E RC; +QUERCETIN PO
--- NOTE | 2021-03-25 00:10 | NUR ---
FRANCY [address] [facility] FOR ABNORMAL LABS H/H 6.8/20.2, PT AAOX2, DENIES ANY SOB. PLACED ON MONITOR, NOT IN ACUTE DISTRESS. PIV STARTED, BLOOD COLLECTED, PENDING ER PROVIDER LORI
[2021-03-25 00:38] LABS: BASOPHILS # (AUTO) 0.1 /CMM (0.0-0.2); BASOPHILS % (AUTO) 0.6 % (0.0-2.0); EOSINOPHILS % (AUTO) 0.7 % (0.0-6.0); HEMATOCRIT 21 % (39-51); LYMPHOCYTES # (AUTO) 1.9 /CMM (0.8-4.8); LYMPHOCYTES % (AUTO) 21.9 % (20.0-44.0); MEAN CORPUSCULAR HGB CONC 34 g/dl (31.0-36.0); MEAN CORPUSCULAR VOLUME 89 fL (80-96); MONOCYTES # (AUTO) 0.8 /CMM (0.1-1.30); MONOCYTES % (AUTO) 9.3 % (2.0-12.0); NEUTROPHILS % (AUTO) 67.5 % (43.0-81.0); PLATELET COUNT (AUTO) 450 /CMM (150-450); RED BLOOD CELL COUNT(AUTO) 2.34 MIL/uL (4.5-6.0); WHITE BLOOD COUNT (AUTO) 8.9 K/uL (4.3-11.0)
[2021-03-25 01:05] LABS: CALCIUM, SERUM 8.4 mg/dL (8.5-10.1); CARBON DIOXIDE 24 mmol/L (21-32); CHLORIDE 105 mmol/L (98-107); CREATININE 2.5 mg/dL (0.6-1.3); GLUCOSE 82 mg/dL (74-106); POTASSIUM 5.3 mmol/L (3.5-5.1); SODIUM SERUM 139 mmol/L (136-145); UREA NITROGEN, BLOOD 34 mg/dL (7-18)
[2021-03-25] MEDS ORDERED: ONDANSETRON HCL/PF 4 MG/2 ML VIAL IVP PRN (02:00)
[2021-03-25] MEDS ORDERED: ACETAMINOPHEN 325 MG TABLET PO PRN ×2 (02:00→02:30)
[2021-03-25] MEDS ORDERED: IV NS 0.9% 1,000 ML IV PRN (02:00)
[2021-03-25] MEDS ORDERED: Z GUARD REMEDY 2 OZ OINT TP PRN (02:00)
--- NOTE | 2021-03-25 02:20 | NUR ---
REPORT GIVEN TO KULWINDER FOR SHELLIE
--- NOTE | 2021-03-25 02:24 | NUR ---
COVID PCR SENT D/T PATIENT FROM SNF
[2021-03-25] MEDS ORDERED: MAG HYDROX/AL HYDROX/SIMETH 30 ML UDC PO PRN (02:30)
[2021-03-25 03:20] VITALS: BP 155/80
--- NOTE | 2021-03-25 03:40 | NUR ---
TELE-1/SHADE CLOTH FINISHER UNABLE TO OBTAIN CONSENT PT HAS NO DECISION MAKER. PER [facility] THEY USE THEIR INTERDISCIPLINARY TEAM TO MAKE DECISIONS. CALE ACNP NOTIFIED AND PER HER PT WILL HAVE TO RECEIVE 1 UNIT PRBC IN THE AM WHEN TWO PROVIDERS WILL BE ABLE TO SIGN CONSENT. SHE IS UNABLE TO SIGN BECAUSE SHE IS NO LONGER IN HOUSE. WILL ENDORSE TO AM SHIFT WILL CONTINUE TO MONITOR.
[2021-03-25] MEDS: PANTOPRAZOLE 40 MG VIAL IV SCH ×3 (03:45→17:20)
[2021-03-25 06:13] LABS: BASOPHILS % (AUTO) 0.4 % (0.0-2.0); EOSINOPHILS % (AUTO) 0.7 % (0.0-6.0); HEMATOCRIT 23 % (39-51); HEMOGLOBIN 7.6 g/dL (13.5-17.5); LYMPHOCYTES # (AUTO) 1.9 /CMM (0.8-4.8); LYMPHOCYTES % (AUTO) 20.9 % (20.0-44.0); MEAN CORPUSCULAR HGB CONC 33 g/dl (31.0-36.0); MEAN CORPUSCULAR VOLUME 90 fL (80-96); MONOCYTES # (AUTO) 0.8 /CMM (0.1-1.30); MONOCYTES % (AUTO) 8.9 % (2.0-12.0); NEUTROPHILS # (AUTO) 6.2 /CMM (1.8-8.9); NEUTROPHILS % (AUTO) 69.1 % (43.0-81.0); PLATELET COUNT (AUTO) 488 /CMM (150-450); RED BLOOD CELL COUNT(AUTO) 2.61 MIL/uL (4.5-6.0)
[2021-03-25 06:56] LABS: ALANINE AMINOTRANSFERASE 68 U/L (12-78); ALBUMIN 1.9 g/dL (3.4-5.0); ALKALINE PHOSPHATASE 85 U/L (46-116); ASPARTATE AMINOTRANSFERASE 52 U/L (15-37); BILIRUBIN,TOTAL 0.2 mg/dL (0.2-1.0); CALCIUM, SERUM 8.8 mg/dL (8.5-10.1); CARBON DIOXIDE 25 mmol/L (21-32); CHLORIDE 106 mmol/L (98-107); CREATININE 2.4 mg/dL (0.6-1.3); GLUCOSE 86 mg/dL (74-106); MAGNESIUM 1.8 mg/dL (1.8-2.4); PHOSPHORUS 4.4 mg/dL (2.5-4.9); POTASSIUM 5.1 mmol/L (3.5-5.1); SODIUM SERUM 139 mmol/L (136-145); TOTAL PROTEIN, SERUM 7.4 g/dL (6.4-8.2); UREA NITROGEN, BLOOD 31 mg/dL (7-18)
[2021-03-25 07:07] LABS: CHOLESTEROL 88 mg/dL (<200); HDL CHOLESTEROL 30 mg/dL (40-60); LDL 39 mg/dL (0-99); THYROID STIMULATING HORMONE 4.824 uIU/mL (0.358-3.74); TRIGLYCERIDES 112 mg/dL (30-150)
--- NOTE | 2021-03-25 07:30 | NUR ---
RN NOTES Patient is alert and oriented with forgetfulness. No s/s of respiratory distress. No c/o pain or discomfort. Patient continues to be NPO. Right ac 20 GAUZE fluids running at 50 ml/hour. Will continue to monitor. Call light within reach.Bed is in lowest and locked position.
[2021-03-25 07:38] LABS: VALPROIC ACID 11 ug/mL (50-100)
[2021-03-25 08:00] VITALS: BP 160/82
[2021-03-25] MEDS ORDERED: Medication Not On Formulary EA (Omega-3 Fatty Acids/Fish Oil (Fish Oil 1,000 Mg Capsule) PO SCH (09:00)
--- NOTE | 2021-03-25 09:00 | NUR ---
Informed MD Derderian regarding patient being NPO and patient's blood transfusion order in previous shift. Per MD to resume diet and to disregard the transfusion order due to patient's current level of HGB being 7.9mg/dl. Order carried out.
[2021-03-25] MEDS: DIVALPROEX SODIUM 250 MG TABLET.DR PO SCH ×2 (09:01→20:28)
[2021-03-25] MEDS: AMLODIPINE BESYLATE 5 MG TABLET PO SCH (09:01)
[2021-03-25] MEDS: POLYVINYL ALCOHOL 15 ML BOTTLE OP SCH ×3 (09:19→17:11)
--- NOTE | 2021-03-25 09:46 | NUR ---
WOUND CARE CONSULT: PT PRESENTS WITH AREAS OF DISCOLORATION TO BILATERAL LOWER LEGS, PRESENT ON ADMISSION. NO ERYTHEMA, DRAINAGE OR TENDERNESS NOTED. RECOMMENDATIONS MADE FOR SKIN PROTECTION. DISCUSSED WITH NURSING STAFF. MD IN AGREEMENT WITH PLAN OF CARE.
[2021-03-25 11:28] LABS: IRON, SERUM 17 ug/dl (50-175); TOTAL IRON BINDING CAPACITY 158 ug/dl (250-450)
[2021-03-25 12:00] VITALS: BP 156/74
[2021-03-25 13:03] LABS: FERRITIN 943 ng/mL (8-388)
[2021-03-25] MEDS: SOD FERRIC GLUC 125 MG in IV NS 0.9% 100 ML IV SCH (14:58)
[2021-03-25 16:00] VITALS: BP 154/80
--- NOTE | 2021-03-25 16:00 | NUR ---
Patient noted with bp of 160/70, HR of 100. No c.o pain or discomfort. No prn orders. Called Dr. Lara and received orders for Hydralizine 25 mg po q8h prn for SBP>150 and to change iv of 0.9% normal saline to 0.45% normal saline. Orders noted and carried out.
[2021-03-25] MEDS: IV 1/2NS 1000 ML 1,000 ML IV PRN (17:33)
[2021-03-25] MEDS: hydrALAZINE HCL 25 MG TABLET PO PRN (17:41)
--- NOTE | 2021-03-25 18:59 | NUR ---
MS RN CLOSING NOTES Patient is alert and oriented with forgetfulness. No s/s of respiratory distress. No c/o pain or discomfort. Patient is on puree diet thin liquids and ate 100% lunch and dinner 100%. Right ac 20 GAUZE, iv fluids of 0.45% normal saline fluids running at 50 ml/hour. Will continue to monitor. Call light within reach.Bed is in lowest and locked position.Will endorse to next shift for SHELLIE.
--- NOTE | 2021-03-25 19:10 | NUR ---
RN OPENING NOTE RECEIVED PATIENT IN BED RESTING ALERT ORIENTED X2 VERBALLY RESPONSIVE ON ROOM AIR O2:95% IV SITE IS ON RIGHT AC INTACT PATENT IV HYDRATION RUNNING 50CC/HR CONTINENT TO BOWEL/BLADDER SAFETY MEASURE IMPLEMENT,BED IN LOW POSITON AND LOCKED,BED ALARM IS ON,CALL LIGHT WITHIN REACH CONTINUE TO MONITOR.
[2021-03-25 20:00] VITALS: BP 149/73
--- NOTE | 2021-03-25 23:00 | NUR ---
RN NOTE PATIENT PULLED OUT THE IV LINE,STARTED A NEW IV LINE ON LEFT WRIST CONTINUE TO MONITOR.
[2021-03-26] VITALS: BP 148/75
--- NOTE | 2021-03-26 02:00 | NUR ---
RN NOTE PATIENT PULLED OUT IV LINE AGAIN STARTED A NEW IV LINE ON LEFT HAND #22 WITH GOOD BLOOD RETURN NO INFILTRATION,CALLED LEANDRA SWEATBAND PERFORATOR AND RECEIVED SEROQUEL 12.5MG ONE TIME ONLY NOTED AND CARRIED OUT.
[2021-03-26] MEDS ORDERED: QUETIAPINE FUMARATE 25 MG TABLET PO ONE (02:30)
[2021-03-26 04:00] VITALS: BP 126/62
--- NOTE | 2021-03-26 06:30 | NUR ---
RN CLOSING NOTE PATIENT REMAINS ON ALERT ORIENTATED X2 VERBALLY RESPONSIVE NO SOB NOT ACUTE DISTRESS NOTED,ALL DUE MEDS GIVEN MR ORDERED KEPT CLEAN AND DRY ALL THE TIME,ALL NEED MET ENDORSE NEXT COMING SHIFT FOR CONTINUATION OF CARE
[2021-03-26 08:00] VITALS: BP 146/73
[2021-03-26] MEDS: DIVALPROEX SODIUM 250 MG TABLET.DR PO SCH ×2 (08:27→20:24)
[2021-03-26] MEDS: AMLODIPINE BESYLATE 5 MG TABLET PO SCH (08:27)
[2021-03-26] MEDS: PANTOPRAZOLE 40 MG VIAL IV SCH ×2 (08:27→17:38)
[2021-03-26] MEDS: POLYVINYL ALCOHOL 15 ML BOTTLE OP SCH ×3 (08:29→17:38)
[2021-03-26 08:51] LABS: BASOPHILS # (AUTO) 0.1 /CMM (0.0-0.2); BASOPHILS % (AUTO) 0.8 % (0.0-2.0); EOSINOPHILS % (AUTO) 1.4 % (0.0-6.0); HEMATOCRIT 23 % (39-51); HEMOGLOBIN 7.5 g/dL (13.5-17.5); LYMPHOCYTES # (AUTO) 1.9 /CMM (0.8-4.8); LYMPHOCYTES % (AUTO) 26.4 % (20.0-44.0); MEAN CORPUSCULAR HGB CONC 33 g/dl (31.0-36.0); MEAN CORPUSCULAR VOLUME 89 fL (80-96); MONOCYTES # (AUTO) 0.5 /CMM (0.1-1.30); MONOCYTES % (AUTO) 7.2 % (2.0-12.0); NEUTROPHILS # (AUTO) 4.6 /CMM (1.8-8.9); NEUTROPHILS % (AUTO) 64.2 % (43.0-81.0); PLATELET COUNT (AUTO) 473 /CMM (150-450); RED BLOOD CELL COUNT(AUTO) 2.51 MIL/uL (4.5-6.0); WHITE BLOOD COUNT (AUTO) 7.2 K/uL (4.3-11.0)
[2021-03-26 09:03] LABS: CALCIUM, SERUM 8.4 mg/dL (8.5-10.1); CARBON DIOXIDE 23 mmol/L (21-32); CHLORIDE 107 mmol/L (98-107); CREATININE 2.3 mg/dL (0.6-1.3); GLUCOSE 100 mg/dL (74-106); MAGNESIUM 1.7 mg/dL (1.8-2.4); PHOSPHORUS 4.7 mg/dL (2.5-4.9); POTASSIUM 5.6 mmol/L (3.5-5.1); SODIUM SERUM 140 mmol/L (136-145); UREA NITROGEN, BLOOD 29 mg/dL (7-18)
[2021-03-26] MEDS ORDERED: SODIUM POLYSTYRENE SULFONATE 15 G/60 ML BOTTLE PO ONE (10:30)
[2021-03-26] MEDS ORDERED: SOD FERRIC GLUC 125 MG in IV NS 0.9% 100 ML IV SCH (14:00)
[2021-03-26 16:00] VITALS: BP 132/62
[2021-03-26] MEDS: SOD FERRIC GLUC 125 MG in IV NS 0.9% 100 ML IV SCH (16:22)
[2021-03-26] MEDS: IV 1/2NS 1000 ML 1,000 ML IV PRN (16:38)
[2021-03-26 16:50] LABS: CREATININE, URINE 33.1 MG/DL (30.0-125.0); URINE TOTAL PROTEIN 199.1 mg/dL (0-11.9)
[2021-03-26 16:53] LABS: BILIRUBIN,URINE NEGATIVE (NEGATIVE); COLOR,URINE YELLOW (YELLOW); LEUKOCYTE ESTERASE ,URINE NEGATIVE (NEGATIVE); NITRITE, URINE NEGATIVE (NEGATIVE); PROTEIN,URINE 100 mg/dl (NEGATIVE); UGLUCOSE NEGATIVE (NEGATIVE); UROBILINOGEN,URINE 0.2 EU/dL (0.2)
[2021-03-26 17:10] LABS: BACTERIA,URINE 1+ /HPF (None Seen); RBC,URINE 51-80 /HPF (0-2); SQUAMOUS EPITHELIAL CELL,UR 0-2 /HPF (None Seen)
[2021-03-26 17:32] LABS: EOSINOPHIL,URINE Few
--- NOTE | 2021-03-26 19:00 | NUR ---
RN CLOSING NOTES Patient is alert and oriented with forgetfulness. No s/s of respiratory distress. No c/o pain or discomfort. left wrist IV line fluids running at 50 ml/hour. Will continue to monitor. Call light within reach.Bed is in lowest and locked position.Endorsed to next shift for SHELLIE.
--- NOTE | 2021-03-26 19:34 | NUR ---
MS1 RN NOTES RECEIVED ON BED SLEEPING,AROUSABLE TO VERBAL STIMULI,,BREATHING REGULAR,NOT IN ANY FORM OF DISTRESS,ON ROOM AIR,O2 SAT WNL.PRESENT IVF 1/2 NS AT 50ML/HR RATE,INFUSING ON LEFT WRIST VIA PUMP,SITE PATENT.CAME IN WITH SEVERE ANEMIA,ON FERLECCIT IV.FALL RISK,BED ON LOWEST POSITION AND LOCKED,BED ALARM TRIGGERED,CALL LIGHT IN REACH,NEEDS ANTICIPATED.
[2021-03-26 20:00] VITALS: BP 171/78
[2021-03-26] MEDS: hydrALAZINE HCL 25 MG TABLET PO PRN (20:25)
--- NOTE | 2021-03-26 20:25 | NUR ---
MS RN NOTES BLOOD PRESSURE 171/78,APRESOLINE 25MG PO GIVEN ORDERED PRN FOR SBP >150
--- NOTE | 2021-03-27 02:00 | NUR ---
MS1 RN NOTES SLEEPING,KEPT WARM AND COMFORTABLE.
--- NOTE | 2021-03-27 04:00 | NUR ---
MS1 RN NOTES SYSTOLIC BLOOD PRESSURE STILL ELEVATED AT 168/83,PULSE-95,APRESOLINE 25MG PO GIVEN ORDERED FOR SBP >150.DENIES PAIN DISCOMFORTS.
[2021-03-27 04:13] VITALS: BP 168/83
[2021-03-27] MEDS: hydrALAZINE HCL 25 MG TABLET PO PRN (04:18)
--- NOTE | 2021-03-27 06:12 | NUR ---
MS RN NOTES WELL RESTED AT NIGHT.SLEPT WELL WITHOUT PHARMACOLOGICAL INTERVENTION,NO BLEEDING NOTED,IVF INFUSING WELL ON LEFT WRIST,SITE REMAINS PATENT..DUE MEDS ADMINISTERED,TAKEN WELL WITH JELLO,IN NO ACUTE DISTRESS.
[2021-03-27 06:21] LABS: BASOPHILS % (AUTO) 0.6 % (0.0-2.0); EOSINOPHILS % (AUTO) 1.4 % (0.0-6.0); HEMATOCRIT 22 % (39-51); HEMOGLOBIN 7.4 g/dL (13.5-17.5); LYMPHOCYTES # (AUTO) 1.6 /CMM (0.8-4.8); LYMPHOCYTES % (AUTO) 20.4 % (20.0-44.0); MEAN CORPUSCULAR HGB CONC 34 g/dl (31.0-36.0); MEAN CORPUSCULAR VOLUME 89 fL (80-96); MONOCYTES # (AUTO) 0.6 /CMM (0.1-1.30); MONOCYTES % (AUTO) 7.6 % (2.0-12.0); NEUTROPHILS # (AUTO) 5.4 /CMM (1.8-8.9); PLATELET COUNT (AUTO) 443 /CMM (150-450); RED BLOOD CELL COUNT(AUTO) 2.44 MIL/uL (4.5-6.0); WHITE BLOOD COUNT (AUTO) 7.8 K/uL (4.3-11.0)
--- NOTE | 2021-03-27 06:46 | NUR ---
MS1 RN NOTES LATEST BP 140/71,WA-83
[2021-03-27 06:47] LABS: CREATINE KINASE, TOTAL 17 U/L (39-308)
[2021-03-27 06:49] LABS: ALANINE AMINOTRANSFERASE 50 U/L (12-78); ALBUMIN 1.7 g/dL (3.4-5.0); ALKALINE PHOSPHATASE 86 U/L (46-116); ASPARTATE AMINOTRANSFERASE 47 U/L (15-37); BILIRUBIN,TOTAL 0.2 mg/dL (0.2-1.0); CALCIUM, SERUM 8.1 mg/dL (8.5-10.1); CARBON DIOXIDE 21 mmol/L (21-32); CHLORIDE 104 mmol/L (98-107); CREATININE 2.1 mg/dL (0.6-1.3); GLUCOSE 101 mg/dL (74-106); MAGNESIUM 1.5 mg/dL (1.8-2.4); PHOSPHORUS 4.1 mg/dL (2.5-4.9); POTASSIUM 3.8 mmol/L (3.5-5.1); SODIUM SERUM 136 mmol/L (136-145); UREA NITROGEN, BLOOD 28 mg/dL (7-18)
--- NOTE | 2021-03-27 07:30 | NUR ---
MS RN AM NOTES RECEIVED PT IN BED, SLEEPING,AROUSABLE TO VERBAL STIMULI,,BREATHING REGULAR,NOT IN ANY FORM OF DISTRESS,ON ROOM AIR,O2 SAT WNL.PRESENT IVF 1/2 NS AT 50ML/HR RATE,INFUSING ON RIGHT HAND VIA PUMP,SITE PATENT.ON PUREE DIET.CAME IN WITH SEVERE ANEMIA,ON FERLECCIT IV.FALL RISK,BED ON LOWEST POSITION AND LOCKED,BED ALARM TRIGGERED,CALL LIGHT IN REACH,NEEDS ANTICIPATED. WILL CONT TO MONITOR
[2021-03-27 08:00] VITALS: BP 146/73
[2021-03-27] MEDS: PANTOPRAZOLE 40 MG TABLET.DR PO SCH ×2 (09:06→16:26)
[2021-03-27] MEDS: DIVALPROEX SODIUM 250 MG TABLET.DR PO SCH ×2 (09:06→20:13)
[2021-03-27] MEDS: AMLODIPINE BESYLATE 5 MG TABLET PO SCH (09:07)
[2021-03-27] MEDS: POLYVINYL ALCOHOL 15 ML BOTTLE OP SCH ×3 (09:07→16:36)
[2021-03-27] MEDS: Magnesium 1GM/D5W 100ML PREMIX 100 ML IV SCH ×2 (09:21→10:41)
--- NOTE | 2021-03-27 09:30 | NUR ---
RN NOTES DUE MEDS GIVEN
--- NOTE | 2021-03-27 09:45 | NUR ---
RN NOTES PT PULLED OUT HIS IV TWICE. WILL RESTART ON ANOTHER SITE
[2021-03-27] MEDS: ENSURE ENLIVE 237 ML LIQUID (VANILLA) PO SCH ×2 (13:38→16:36)
[2021-03-27] MEDS: SOD FERRIC GLUC 125 MG in IV NS 0.9% 100 ML IV SCH (14:32)
[2021-03-27 16:00] VITALS: BP 126/72
[2021-03-27] MEDS: IV 1/2NS 1000 ML 1,000 ML IV PRN (16:32)
--- NOTE | 2021-03-27 18:31 | NUR ---
MS RN CLOSING NOTES ALL NEEDS MET. PT RESTING, NOT IN ANY DISTRESS, NO SOB, IVF ONGOING. ALL NEEDS MET. NO OTHER SIGNIFICANT CHANGE. WILL ENDORSE TO NEXT SHIFT FOR SHELLIE.
--- NOTE | 2021-03-27 19:30 | NUR ---
RN OPENING NOTES: RECEIVED PT A/OX1-2 IN BED SLEEPING COMFORTABLY. PATIENT IN NO S/SX OF ACUTE DISTRESS AT THIS TIME. NO SOB NOTED. PATIENT'S BREATHING IS EVEN AND UNLABORED. PATIENT IS ON ROOM AIR TOLERATING WELL; O2 SAT @ >95% AT THE TIME OF RECEIVED. PATIENT ON MS STATUS. ON BED REST BUT NOTED TO HAVE BED MOBILITY. PATIENT ON PUREED DIET; TOLERATES WELL. NOTED IV SITE ON L HAND #20; PATENT, INTACT AND FLUSHING WELL; NO S/S OF INFECTION OR INFILTRATION. WITH IV FLUID RUNNING ORDERED. SAFETY MEASURES HAVE BEEN PROVIDED AND IMPLEMENTED. PATIENT BED ALARM IS ON. HEAD OF BED ELEVATED. BED IS LOCKED, IN LOWEST POSITION AND SIDE RAILS UP. CALL LIGHT WITHIN REACH OF THE PATIENT. APPLICABLE ISOLATION PRECAUTIONS IN PLACE. WILL CONTINUE TO MONITOR AND REASSESS FOR ANY CHANGES AND WILL CARRY OUT ANY ONGOING AND ACTIVE MD ORDER.
[2021-03-27 20:00] VITALS: BP 144/80
[2021-03-27] MEDS ORDERED: QUETIAPINE FUMARATE 25 MG TABLET PO SCH (22:00)
--- NOTE | 2021-03-27 22:30 | NUR ---
RN NOTES NO CHANGE IN PATIENT CONDITION AT THIS TIME PATIENT VITALS STABLE, NO SIGNS OF ACUTE RESPIRATORY DISTRESS. WILL CONTINUE TO MONITOR AND REASSESS FOR ANY CHANGES THROUGHOUT THE SHIFT.
--- NOTE | 2021-03-28 03:00 | NUR ---
RN NOTES PATIENT REMAINS IN NO ACUTE RESPIRATORY DISTRESS AT THIS TIME, NO CHANGES TO CONDITION/STATUS. AM PATIENT CARE DONE. WILL CONTINUE TO MONITOR AND REASSESS FOR ANY CHANGES THROUGHOUT THE SHIFT
[2021-03-28 04:00] VITALS: BP 160/85
[2021-03-28] MEDS: hydrALAZINE HCL 25 MG TABLET PO PRN (04:42)
[2021-03-28 05:08] LABS: PTH, INTACT 52 pg/mL (15-65)
--- NOTE | 2021-03-28 06:52 | NUR ---
RN CLOSING NOTE: PATIENT REMAINS IN ROOM IN NO SIGNS OF RESPIRATORY DISTRESS, PATIENT STILL ON ROOM AIR;TOLERATING WELL SATURATING @ >95% SP02. SAFETY MEASURES IMPLEMENTED, BED IN LOWEST POSITION, LOCKED, SIDE RAILS UP, CALL LIGHT WITHIN REACH. ALL NEEDS AND ORDERS ADDRESSED DURING THE SHIFT. IV ACCESS MAINTAINED INTACT, SECURED AND FLUSHING WELL. ALL DUE MEDS GIVEN ORDERED & SCHEDULED ; PATIENT TOLERATED WELL. PATIENT KEPT CLEAN AND COMFORTABLE WITHIN THE SHIFT. PATIENT ENDORSED TO INCOMING SHIFT RN WITH STABLE VITAL SIGN AND FOR CONTINUITY OF CARE.
--- NOTE | 2021-03-28 07:30 | NUR ---
RN OPENING NOTE PT A/Ox1, CONFUSED, LYING SEMIFOWLERS IN BED, BREATHING RA SPO2 99% WITH NO SIGNS OF RESP DISTRESS OR SOB. PT HAS BLE DRY SCABS. PT BILAT SOFT WRIST RESTRAINTS IN PLACE, CMS INTACT, WILL CONT TO ASSESS. PT LT HAND IV ACCESS DISLODGED, WILL ATTEMPT IV INSERTION SHORTLY, WAS RUNNING 1/2 NS @ 50ML/HR. NO AM LABS DRAWN, WILL REQUEST. ALL PT SAFETY PRECAUTION IN PLACE, BED LOCKED AND IN LOWEST POSITION, BED ALARM ON, CALL LIGHT WITHIN REACH, SR UP x2. WILL CONT TO MONITOR
[2021-03-28 08:00] VITALS: BP 154/77
[2021-03-28 08:06] LABS: COMPLEMENT C3, SERUM 171 mg/dL (82-167); COMPLEMENT C4, SERUM 40 mg/dL (12-38)
[2021-03-28 08:25] LABS: BASOPHILS % (AUTO) 0.6 % (0.0-2.0); EOSINOPHILS % (AUTO) 1.9 % (0.0-6.0); HEMATOCRIT 23 % (39-51); HEMOGLOBIN 7.6 g/dL (13.5-17.5); LYMPHOCYTES # (AUTO) 1.9 /CMM (0.8-4.8); LYMPHOCYTES % (AUTO) 26.8 % (20.0-44.0); MEAN CORPUSCULAR HGB CONC 34 g/dl (31.0-36.0); MEAN CORPUSCULAR VOLUME 88 fL (80-96); MONOCYTES # (AUTO) 0.6 /CMM (0.1-1.30); MONOCYTES % (AUTO) 8.8 % (2.0-12.0); NEUTROPHILS # (AUTO) 4.5 /CMM (1.8-8.9); NEUTROPHILS % (AUTO) 61.9 % (43.0-81.0); PLATELET COUNT (AUTO) 454 /CMM (150-450); RED BLOOD CELL COUNT(AUTO) 2.58 MIL/uL (4.5-6.0); WHITE BLOOD COUNT (AUTO) 7.3 K/uL (4.3-11.0)
[2021-03-28 08:33] LABS: CALCIUM, SERUM 7.9 mg/dL (8.5-10.1); CARBON DIOXIDE 24 mmol/L (21-32); CHLORIDE 103 mmol/L (98-107); CREATININE 1.8 mg/dL (0.6-1.3); GLUCOSE 79 mg/dL (74-106); POTASSIUM 3.9 mmol/L (3.5-5.1); SODIUM SERUM 137 mmol/L (136-145); UREA NITROGEN, BLOOD 25 mg/dL (7-18)
[2021-03-28] MEDS: DIVALPROEX SODIUM 250 MG TABLET.DR PO SCH (08:50)
[2021-03-28] MEDS: POLYVINYL ALCOHOL 15 ML BOTTLE OP SCH ×2 (08:51→13:39)
[2021-03-28] MEDS: AMLODIPINE BESYLATE 5 MG TABLET PO SCH (08:51)
[2021-03-28] MEDS: ENSURE ENLIVE 237 ML LIQUID (VANILLA) PO SCH (08:51)
[2021-03-28] MEDS: PANTOPRAZOLE 40 MG TABLET.DR PO SCH (08:51)
[2021-03-28 09:07] LABS: *ANA ANTI-CENTROMERE B AB <0.2 AI (0.0-0.9); *ANA ANTI-DNA(DS) AB, QN <1 IU/mL (0-9); *ANA ANTI-JO-1 <0.2 AI (0.0-0.9); *ANA ANTICHROMATIN ANTIBODY <0.2 AI (0.0-0.9); *ANA RNP ANTIBODIES <0.2 AI (0.0-0.9); *ANA SJOGREN'S ANTI-SS-A <0.2 AI (0.0-0.9); *ANA SJOGREN'S ANTI-SS-B <0.2 AI (0.0-0.9); *ANAANTI-SCLERODERMA-70 AB <0.2 AI (0.0-0.9); *ANASMITH AB 0.2 AI (0.0-0.9); *SPE A/G RATIO 0.5 (0.7-1.7); *SPE ALPHA-1-GLOBULIN 0.4 g/dL (0.0-0.4); *SPE BETA GLOBULIN 1.1 g/dL (0.7-1.3); *SPE GLOBULIN, TOTAL 4.3 g/dL (2.2-3.9); *SPE M-SPIKE Not Observed g/dL (Not Observed); *SPEGAMMA GLOBULIN 1.7 g/dL (0.4-1.8)
[2021-03-28 12:00] VITALS: BP 121/67
--- NOTE | 2021-03-28 15:54 | NUR ---
RN NOTE PT IN STABLE CONDITION. PT REPORT GIVEN TO BISMARK BULLOCK AT RECEIVING FACILITY. PT REPORT GIVEN TO EMT
== END 2021-03-28 16:00 | DRG 280 ==
LOC: ER 23:56 → TELE1 03-25 02:11 → MEDSG1 03-25 08:20
PROVIDERS: ADMIT Internal Medicine; ATTEND Internal Medicine
DX: I13.0 Hypertensive heart and chronic kidney disease with heart failure and stage 1 through stage 4 chronic kidney disease, or unspecified chronic kidney disease (principal); I21.A1 Myocardial infarction type 2; E43 Unspecified severe protein-calorie malnutrition; G93.41 Metabolic encephalopathy; J96.01 Acute respiratory failure with hypoxia; N17.0 Acute kidney failure with tubular necrosis; D68.59 Other primary thrombophilia; I69.354 Hemiplegia and hemiparesis following cerebral infarction affecting left non-dominant side; D63.8 Anemia in other chronic diseases classified elsewhere; F03.90 Unspecified dementia, unspecified severity, without behavioral disturbance, psychotic disturbance, mood disturbance, and anxiety; F41.9 Anxiety disorder, unspecified; E11.36 Type 2 diabetes mellitus with diabetic cataract; M19.90 Unspecified osteoarthritis, unspecified site; E78.5 Hyperlipidemia, unspecified; E87.5 Hyperkalemia; N18.9 Chronic kidney disease, unspecified; K21.9 Gastro-esophageal reflux disease without esophagitis; E11.22 Type 2 diabetes mellitus with diabetic chronic kidney disease; E88.09 Other disorders of plasma-protein metabolism, not elsewhere classified; H26.9 Unspecified cataract; F29 Unspecified psychosis not due to a substance or known physiological condition; Z74.09 Other reduced mobility; I50.9 Heart failure, unspecified; R04.0 Epistaxis; D50.9 Iron deficiency anemia, unspecified
CPT/HCPCS: 36415; 71045-TC; 80048-TC; 80053-TC; 80061-TC; 80164-TC; 81001; 82436-TC; 82550-TC; 82570-TC; 82728-TC; 83540-TC; 83735-TC; 83970; 84100-TC; 84132-TC; 84133-TC; 84155; 84155-TC; 84165; 84300-TC; 84443-TC; 84484-TC; 85025-TC; 85652-TC; 86225; 86235; 86706; 86803; 86850-TC; 87081-TC; 87340; 97110-TC; 97112-TC; 97530-TC; C9113; C9803; G0378; J2916; J3475; J3490; J7030; U0003